=== PATIENT | female | born 1955 | race Caucasian/White ===

== ENCOUNTER 2017-01-27 16:21 | Emergency (ER) | payer BC, OTHER ==
[~2017-01-27] VITALS: Ht 162.6 cm; Wt 74.8 kg
--- NOTE | 2017-01-27 16:22 | NUR ---
Arrival: Pt wheeled to ED 6, UA obtained via clean catch. pt assisted to bed and placed on monitor. Assessment as charted.
[2017-01-27] MEDS ORDERED: TORADOL ONE (16:37)
[2017-01-27] MEDS ORDERED: TORADOL IV STA (16:38)
[2017-01-27] MEDS ORDERED: ZOFRAN IV STA (16:45)
[2017-01-27] MEDS ORDERED: ZOFRAN ONE (16:45)
--- NOTE | 2017-01-27 16:45 | ER.PDOC ---
General Chief Complaint: Abdomen Pain Stated Complaint: LEFT ABDOMINAL PAIN Time seen by MD: 16:43 Source: patient Exam Limitations: no limitations History of Present Illness Initial Comments Left flank pain Timing/Duration: 1-3 hours Severity/Quality: severe Radiation: LLQ Associated Symptoms: denies symptoms Exacerbated by: nothing Relieved By: nothing Allergies: Coded Allergies: Penicillins (Verified Allergy, Unknown, Shortness of Breath, 01/27/17) Vital Signs First Vital Signs Date Time Temp Pulse Resp B/P Pulse Ox O2 Delivery O2 Flow Rate FiO2 01/27/17 16:29 72 24 98 01/27/17 16:35 98.6 184/110 Last Vital Signs Date Time Temp Pulse Resp B/P Pulse Ox O2 Delivery O2 Flow Rate FiO2 01/27/17 16:35 98.6 72 24 184/110 98 Past Medical History Medical History: diabetes Surgical History: appendectomy, cancer surgery, tonsillectomy, tubal LMP (females 10-50): postmenopause Social History Smoking: non-smoker Alcohol Use: none Drug Use: none Constitutional: no symptoms reported Respiratory: no symptoms reported Cardiovascular: no symptoms reported Gastrointestinal: see HPI Genitourinary: see HPI Musculoskeletal: no symptoms reported All Other Systems: Reviewed and Negative Physical Exam General Appearance: No Apparent Distress, WD/WN Neck: Non-Tender, Full Range of Motion, Supple, Normal Inspection Respiratory: chest non-tender, lungs clear, normal breath sounds, no respiratory distress, no accessory muscle use Cardiovascular: Normal Peripheral Pulses, Regular Rate, Rhythm, No Edema, No Gallop, No JVD, No Murmur Gastrointestinal: Normal Bowel Sounds, No Organomegaly, No Pulsatile Mass, Tenderness (LLQ) Back: Normal Inspection, CVA Tenderness (L) Extremities: Normal Range of Motion, Non-Tender, Normal Inspection, No Pedal Edema, No Calf Tenderness, Normal Capillary Refill, Pelvis Stable Neurologic/Psychiatric: steeple jack II-XII NML as Tested, No Motor/Sensory Deficits, Alert, Normal Mood/Affect, Oriented x 3 Skin: Normal Color, Warm/Dry Results/Orders Results/Orders Administered Medications Medications (Trade) Dose Ordered Sig/Dane Route PRN Reason Start Time Stop Time Status Last Admin Dose Admin Ketorolac Tromethamine (Toradol) 30 mg STAT STAT IV 01/27/17 16:38 01/27/17 16:39 DC 01/27/17 16:41 Progress Progress Reviewed labs and CT results with patient. EKG/XRAY/CT/US CT Comments: 2mm and 3mm left distal/UVJ calculus with hydronephrosis Course Blood Pressure Systolic: 184 Blood Pressure Diastolic: 110 Blood Pressure Mean: 134 Departure Time of Disposition: 19:55 Disposition: 01 HOME, SELF-CARE Impression: Primary Impression: Left ureteral calculus Additional Impression: UTI (urinary tract infection) Condition: Improved Additional Instructions: Push fluids Cipro Flomax Tylenol #3 F/U with Dr. Shipley in 2-3 days Problem Qualifiers Additional Impression: UTI (urinary tract infection) Urinary tract infection type: site unspecified Hematuria presence: with hematuria Qualified Code: N39.0 - Urinary tract infection, site not specified CHRIS GREENE MD Jan 27, 2017 16:45
[2017-01-27 16:46] LABS: BASOPHIL % 0.2 % (0.0-0.2); EOSINOPHIL # 0.1 10^3/uL (0.0-0.2); EOSINOPHIL % 0.7 % (0.0-5.0); HEMATOCRIT 39.3 % (36.0-46.0); HEMOGLOBIN 12.9 g/dL (12.0-15.0); LYMPHOCYTES # 1.3 10^3/uL (1.0-4.8); LYMPHOCYTES % 14.9 % (24.0-44.0); MEAN CELL HGB 28.7 pg (26-34); MEAN CELL HGB CONCENTRATION 32.8 g/dL (33-37); MEAN CORP VOLUME 87.5 fL (78-100); MEAN PLATELET VOLUME 10.3 fL (7.8-11.0); MONOCYTES # 0.5 10^3/uL (0.3-0.8); MONOCYTES % 6.3 % (5.0-12.0); NEUTROPHIL # 6.5 10^3/uL (1.8-7.7); NEUTROPHILS % 77.5 % (41.0-85.0); RED CELL DISTRIBUTION WIDTH 14.3 % (11.5-14.5); WHITE BLOOD CELL 8.4 10^3/uL (4.5-11.0)
[2017-01-27 16:59] LABS: BILIRUBIN,URINE NEGATIVE (NEGATIVE); UROBILINOGEN,URINE NORMAL (NEGATIVE)
[2017-01-27 17:09] LABS: CALCIUM 9.3 mg/dL (8.4-10.5); CARBON DIOXIDE 26.2 mmol/L (20.0-32)
[2017-01-27 17:09] LABS: APPEARANCE,URINE CLOUDY (CLEAR); UA COLOR YELLOW (YELLOW)
--- NOTE | 2017-01-27 17:44 | NUR ---
CT: Pt to CT via wheelchair.
--- NOTE | 2017-01-27 17:44 | NUR ---
CT PT TAKEN TO CT
[2017-01-27 17:50] LABS: YEAST,URINE FEW
--- NOTE | 2017-01-27 17:55 | NUR ---
CT PT BACK FROM CT
--- NOTE | 2017-01-27 19:36 | DIREP ---
PROCEDURE:CT ABDOMEN/PELVIS W/O CONTRAST COMPARISON:None. INDICATIONS:Left flank pain to left groin pain TECHNIQUE:Axial images were obtained through the abdomen and pelvis without the administration of IV contrast. Oral contrast was not administered. The examination is supplemented with sagittal and coronal reconstructions. FINDINGS: LOWER CHEST:The lung bases appear clear of focal consolidation. No evidence of pleural effusion. LIVER:A focal lesion is not detected. The lack of IV contrast lowers the sensitivity for detection of small lesions. BILIARY:No visible dilatation or calcification. PANCREAS:No lesion, inflammatory changes, fluid collection, ductal dilatation, or atrophy. SPLEEN:No enlargement. No focal lesion. KIDNEYS:No mass. There is a 2 mm calcification in the distal left ureter and a 3 mm calcification at the left ureterovesical junction. There is associated hydroureteronephrosis. There is bilateral nephrolithiasis. ADRENALS:No mass or enlargement. AORTA/VASCULAR:No aneurysm or dissection. RETROPERITONEUM:No mass or adenopathy. BOWEL/MESENTERY:Limitations due to unopacified bowel. The appendix is not visualized. There is no pericecal inflammation or fluid collection to suggest appendicitis. No small bowel dilatation or bowel wall thickening. Sigmoid diverticula. No mesenteric inflammatory changes. There is no free air or free fluid. ABDOMINAL WALL:No mass or hernia. PELVIC NODES:No adenopathy. PELVIC ORGANS:No visible mass. URINARY BLADDER:No visible focal wall thickening, lesion, or calculus. BONES:Degenerative disc disease. OTHER:Negative. CONCLUSION: 1. There is a 2 mm calcification in the distal left ureter and a 3 mm calcification at the left ureterovesical junction. There is associated left hydroureteronephrosis. There is bilateral nephrolithiasis. Dictated by: Edmundo Shi M.D. On 01/27/2017 at 07:30 PM
[2017-01-27] MEDS ORDERED: FLOMAX PO STA (19:57)
[2017-01-27] MEDS ORDERED: NORCO 10-325 TABLET PO STA (19:57)
[2017-01-27] MEDS ORDERED: FLOMAX ONE (19:59)
[2017-01-27] MEDS ORDERED: CIPRO PO STA (19:59)
[2017-01-27] MEDS ORDERED: NORCO 10-325 TABLET PO ONE (19:59)
[2017-01-27] MEDS ORDERED: CIPRO ONE (20:01)
--- NOTE | 2017-01-27 20:17 | NUR ---
Discharge: Pt discharge instructions given with Rx *3, Pt voiced understanding. IV d/c with tip intact and no redness or swelling noted to site. Pt ambulated out of ED with designated service car driver.
[2017-01-27 20:18] VITALS: BP 143/83
== END 2017-01-27 20:17 | disposition home or self-care (01) ==
LOC: ER 16:21
DX: N13.2 Hydronephrosis with renal and ureteral calculous obstruction (principal); N39.0 Urinary tract infection, site not specified; E11.9 Type 2 diabetes mellitus without complications; R31.9 Hematuria, unspecified; Z88.0 Allergy status to penicillin; Z85.9 Personal history of malignant neoplasm, unspecified
CPT/HCPCS: 36415; 74176; 80053; 81000; 85025; 85610; 85730; 87086; 96374; 96375; 99285; J1885; J2405